=== PATIENT | female | born 1960 | race American Indian/Alaskan Native ===

== ENCOUNTER 2016-09-08 16:20 | Emergency (ER) | payer SELFPAY ==
[2016-09-08 16:40] VITALS: BP 154/83
--- NOTE | 2016-09-08 20:18 | Emergency Department Report ---
HPI - General Chief Complaint: Extremity Injury, Upper Time Seen by Provider: 09/08/16 19:59 - HPI HPI: 56-year-old female presents to ED complaining of feelings of sharp tingling sensation starting back shoulder down forearm. Patient states this has been going on for the past 2 weeks. Patient states today she noticed left heart is the right arm. Patient denies any history of hypertension or diabetes. Patient has a history of shoulder surgery in 2005. Time patient seen and assessed shows some prominent abdominal pain/chest pain/shortness of breath/dizziness weakness recent injury or trauma. ED Past Medical Hx - Past Medical History Previous Medical History?: No - Surgical History Past Surgical History?: Yes Additional Surgical History: left shoulder 2005, right shoulder 2015 - Social History Smoking Status: Never Smoker Substance Use Type: None - Medications Home Medications: Home Medications Medication Instructions Recorded Confirmed Last Taken Type Ibuprofen [Motrin 800 MG tab] 800 mg PO Q8HR PRN #20 tablet 09/08/16 Unknown Rx traMADol [Ultram 50 MG tab] 50 mg PO Q6HR PRN #24 tablet 09/08/16 Unknown Rx ED Review of Systems ROS: Stated complaint: NUMBNESS/PAIN LFT SHOULDER/HAND Other details as noted in HPI Constitutional: denies: chills, fever Eyes: denies: eye pain, eye discharge, vision change ENT: denies: ear pain, throat pain Respiratory: denies: cough, shortness of breath, wheezing Cardiovascular: denies: chest pain, palpitations Endocrine: no symptoms reported Gastrointestinal: denies: abdominal pain, nausea, diarrhea Genitourinary: denies: urgency, dysuria, discharge Musculoskeletal: denies: back pain, joint swelling, arthralgia Skin: denies: rash, lesions Neurological: denies: headache, weakness, paresthesias Psychiatric: denies: anxiety, depression Hematological/Lymphatic: denies: easy bleeding, easy bruising Physical Exam - Physical Exam Vital Signs: Vital Signs 09/08/16 16:36 Temperature 98.3 F Pulse Rate 96 H Respiratory 16 Rate Blood Pressure 154/83 O2 Sat by Pulse 97 Oximetry Physical Exam: GENERAL: Alert and oriented x3, no apparent distress, Normal Gait, atraumatic. HEAD: Head is normocephalic and a-traumatic. EYES: Extra ocular muscles are intact. Pupils are equal, round, and reactive to light and accommodation. LUNGS: Symetrical with respiration, No wheezing, no rales or crackles, CTAB. HEART: S1, S2 present, regular rate and rhythm without murmur, no rubs, no gallops. ABDOMEN: No organomegaly was noted,Positive bowel sounds, soft, and non- distended. . Nontender to palpation on all Quadrants, NO CVA tenderness. EXTREMITIES/MUSCULOSKELETAL: No cyanosis, clubbing, rash, lesions or edema. Full ROM bilaterally. UE Pulses 2+ bilaterally. UE 5+ strength bilaterally NEUROLOGIC: No focal Deficit, Cranial nerves II through XII are grossly intact. No loss of sensation, PSYCHIATRIC: Mood is congruent with affect, denies suicidal or homicidal ideations. SKIN: Warm and dry, No lesions, No ulceration or induration present. ED Course Vital Signs 09/08/16 16:36 Temperature 98.3 F Pulse Rate 96 H Respiratory 16 Rate Blood Pressure 154/83 O2 Sat by Pulse 97 Oximetry ED Medical Decision Making - Medical Decision Making 56-year-old female presents with cervical adenopathy ED course: Discussed the patient chronic pain managed by primary care physician and she would need to follow up with her primary care physician. Patient states she is not in any acute pain at the moment. Exam normal no acute distress. Vital signs are stable. Discussed the patient and take medication as prescribed for pain. Follow-up with referrals as given. Patient verbally C she understands and will follow-up. - Differential Diagnosis 1. Diabetic neuropathy 2. Cervical adenopathy 3. Myalgia 4. Critical care attestation.: If time is entered above; I have spent that time in minutes in the direct care of this critically ill patient, excluding procedure time. ED Disposition Clinical Impression: Cervical radiculopathy Disposition: DISCHARGED TO HOME OR SELFCARE Is pt being admited?: No Does the pt Need Aspirin: No Condition: Stable Instructions: Cervical Radiculopathy (ED) Additional Instructions: Follow-up with primary care doctor as referred. Follow-up with neurologist. take your medication as prescribed. Prescriptions: Ibuprofen [Motrin 800 MG tab] 800 mg PO Q8HR PRN #20 tablet PRN Reason: Pain traMADol [Ultram 50 MG tab] 50 mg PO Q6HR PRN #24 tablet PRN Reason: Pain Referrals: PRIMARY CARE, [Primary Care Provider] - 3-5 Days ELIZABET MAR MD [Referring] - 3-5 Days MARY GRACE GUPTA MD [Staff Physician] - 3-5 Days Forms: Accompanied Note, Work/School Release Form(ED) Time of Disposition: 20:34
== END 2016-09-08 20:55 | disposition home or self-care (01) ==
LOC: ED 16:20
DX: M54.12 Radiculopathy, cervical region (principal)
CPT/HCPCS: 99281